=== PATIENT | female | born 1985 | race Caucasian/White ===

== ENCOUNTER 2017-08-26 20:23 | Emergency (ER) | payer OTHER ==
[2017-08-26 21:12] VITALS: BP 123/85
== END 2017-08-26 22:11 | disposition left against medical advice (07) ==
LOC: ED 20:23
DX: Z53.21 Procedure and treatment not carried out due to patient leaving prior to being seen by health care provider (principal)

== ENCOUNTER 2017-10-02 20:36 | Emergency (ER) | payer OTHER ==
[2017-10-03 00:07] VITALS: BP 110/70
== END 2017-10-03 00:07 | disposition home or self-care (01) ==
LOC: ED 20:36
DX: I25.10 Atherosclerotic heart disease of native coronary artery without angina pectoris (principal); M06.9 Rheumatoid arthritis, unspecified; M79.7 Fibromyalgia
CPT/HCPCS: J0696; J7613

== ENCOUNTER 2017-10-04 20:18 | Emergency (ER) | payer OTHER ==
[2017-10-04 21:10] VITALS: BP 115/75
== END 2017-10-04 21:10 | disposition home or self-care (01) ==
LOC: ED 20:18
DX: R05 Cough (principal); R50.9 Fever, unspecified; M79.1 Myalgia